=== PATIENT | male | born 1970 | race Caucasian/White ===

== ENCOUNTER 2025-05-18 22:38 | Emergency (ER) | payer MEDICAID, OTHER ==
[~2025-05-18] VITALS: Ht 190.5 cm; Wt 107.0 kg
[2025-05-19] MEDS: ONDANSETRON HCL/PF - ER 4 MG/2 ML VIAL IV ONE (01:07)
[2025-05-19] MEDS ORDERED: HYDROMORPHONE 1 MG/1 ML DISP.SYRIN ONE (01:07)
[2025-05-19] MEDS: IV NS 0.9% 1,000 ML IV ONE (01:07)
[2025-05-19] MEDS ORDERED: ONDANSETRON HCL/PF 4 MG/2 ML VIAL ONE (01:07)
[2025-05-19] MEDS: HYDROMORPHONE 1 MG/1 ML DISP.SYRIN IV ONE (01:07)
[2025-05-19 01:11] LABS: PLATELET COUNT (AUTO) 190 K/uL (150-450); RED BLOOD CELL COUNT(AUTO) 4.65 MIL/uL (4.5-6.0); RED CELL DISTRIBUTION WIDTH 13.6 % (11.5-15.0); WHITE BLOOD COUNT (AUTO) 13.8 K/uL (4.3-11.0)
[2025-05-19 01:21] LABS: CALCIUM, SERUM 9.2 mg/dL (8.5-10.1); CREATININE 2.2 mg/dL (0.6-1.3); SODIUM SERUM 141.0 mmol/L (136-145); UREA NITROGEN, BLOOD 18.0 mg/dL (7-18)
[2025-05-19 01:27] LABS: ASPARTATE AMINOTRANSFERASE 27.0 U/L (15-37); TOTAL PROTEIN, SERUM 7.8 g/dL (6.4-8.2)
[2025-05-19] MEDS ORDERED: POTASSIUM CHLORIDE 20 MEQ TAB.PRT.SR PO ONE (02:29)
[2025-05-19] MEDS: POTASSIUM CHLORIDE 20 MEQ TAB.PRT.SR PO ONE (02:30)
[2025-05-19] MEDS ORDERED: CLONIDINE HCL 0.1 MG TABLET ONE (03:39)
[2025-05-19] MEDS: CLONIDINE HCL 0.1 MG TABLET PO ONE (03:40)
[2025-05-19] MEDS ORDERED: KETO10TA2 PO (04:24)
[2025-05-19 04:39] VITALS: BP 138/88; TEMP 98.4; O2SAT 99
== END 2025-05-19 04:46 | disposition home or self-care (01) ==
LOC: ER 22:46
DX: R10.84 Generalized abdominal pain (principal); I10 Essential (primary) hypertension; K59.00 Constipation, unspecified; N13.2 Hydronephrosis with renal and ureteral calculous obstruction
CPT/HCPCS: 99285; 74176; 96374; 96361; 96375; 85025; 87040; 83690; 36415; 80053; J2405 ×2; J7030; J1171